=== PATIENT | female | born 1955 | race Caucasian/White ===

== ENCOUNTER → 2016-12-27 | Outpatient (CLI) | payer OTHER ==
[2014-08-19 07:00] VITALS: BP 169/92
[~2016-12-27] MED LIST: ENAL20TA PO; MIRT15TA PO; MIRT45TA PO; PARO20TA99 PO; PARO40TA61 PO; RANI150T2 PO
--- NOTE | 2016-12-28 09:32 | KCIC ---
DATE: 12/27/2016 EXAM: MAMMO YANA SCREENING BILATERAL HISTORY: Routine screening COMPARISON: 11/15/2015 This study was interpreted with the benefit of Computerized Aided Detection (CAD). The breast parenchyma is heterogeneously dense, which could reduce sensitivity of mammography. Breast parenchyma level C. FINDINGS: 2-D and 3-D tomosynthesis imaging was performed in CC and MLO projections. The breasts are asymmetric with increased density in the retroareolar region of the right breast compared to the left. This appearance is unchanged. Small nodular opacities in the lateral aspect of the right breast are also unchanged. No new or enlarging breast densities are seen. Minimal benign type calcification is present. No suspicious microcalcifications have developed. IMPRESSION: Stable mammograms without evidence of malignancy. BI-RADS CATEGORY: 2 BENIGN FINDING(S) RECOMMENDED FOLLOW-UP: 12M 12 MONTH FOLLOW-UP PQRS compliance statement: Patient information was entered into a reminder system with a target due date for the next mammogram. Mammography is a sensitive method for finding small breast cancers, but it does not detect them all and is not a substitute for careful clinical examination. A negative mammogram does not negate a clinically suspicious finding and should not result in delay in biopsying a clinically suspicious abnormality. "Our facility is accredited by the [employer] Mammography [employer]."
== END | disposition home or self-care (01) ==
LOC: KCIC MAMMO 14:31
PROVIDERS: ATTEND Family Medicine
DX: Z12.31 Encounter for screening mammogram for malignant neoplasm of breast (principal)
CPT/HCPCS: 77063; G0202; 77067

== ENCOUNTER → 2017-02-27 | Day surgery (SDC) | payer OTHER ==
[~2017-02-27] MED LIST changes: -ENAL20TA PO; +LIDOCAINE 1% PF 2 ML VIAL. ID; +LIDOCAINE 2% PF Vial for OR 5 ML VIAL.; -MIRT15TA PO; -MIRT45TA PO; +ONDANSETRON PF 4 MG/2 ML VIAL. IV; -PARO20TA99 PO; -PARO40TA61 PO; +PROCHLORPERAZINE 10 MG/2 ML VIAL. IV; +PROPOFOL 20 ML IV; +PROPOFOL 40 ML IV; -RANI150T2 PO; +fentaNYL PF VIAL 100 MCG/2 ML VIAL IV
[2017-02-27] MEDS: IV RINGERS,LACTATED 1000ML 1,000 ML IV (06:43)
== END | disposition home or self-care (01) ==
LOC: ENDOS 06:02
DX: Z12.11 Encounter for screening for malignant neoplasm of colon (principal); D12.5 Benign neoplasm of sigmoid colon; D12.0 Benign neoplasm of cecum; K62.1 Rectal polyp; K64.0 First degree hemorrhoids
CPT/HCPCS: 45385; 88305; J2704

== ENCOUNTER → 2018-02-25 | Outpatient (CLI) | payer OTHER ==
[2017-02-27 08:15] VITALS: BP 169/103
[~2018-02-25] MED LIST changes: +AMLO10TA6 PO; +ENAL20TA PO; -LIDOCAINE 1% PF 2 ML VIAL. ID; -LIDOCAINE 2% PF Vial for OR 5 ML VIAL.; +MIRT15TA PO; +MIRT45TA PO; -ONDANSETRON PF 4 MG/2 ML VIAL. IV; +PARO20TA99 PO; +PARO40TA61 PO; -PROCHLORPERAZINE 10 MG/2 ML VIAL. IV; -PROPOFOL 20 ML IV; -PROPOFOL 40 ML IV; +RANI150T2 PO; -fentaNYL PF VIAL 100 MCG/2 ML VIAL IV
--- NOTE | 2018-02-25 15:48 | KCIC ---
CT of the chest without contrast Indication: [Lung cancer screening. 30-45 year pack year history of smoking. Patient 62 years of age.] Comparison study: [CT of the chest without contrast August 17, 2014. TECHNIQUE: Multidetector CT imaging of the chest was performed without contrast using a low-dose, lung cancer screening protocol. FINDINGS: Heart size is normal. No pericardial effusion is seen. Scattered small mediastinal lymph nodes are noted, no pathologically enlarged mediastinal adenopathy is identified. Limited visualization of the upper abdomen is unremarkable. No evidence of acute osseous abnormality is identified. Chronic sternal fracture noted. Centrilobular emphysema is noted. The appearance is similar to comparison study. No pneumothorax, pleural effusion, or focal consolidative infiltrate is seen. No concerning nodules or masses are identified. No acute changes from prior study are identified. IMPRESSION: 1. Lung RADS 1 exam. Repeat low-dose CT in 12 months recommended[address] evidence of acute cardiopulmonary process. 3. Centrilobular emphysema, CT DOSING PQRS STATEMENT: One or more of the following individualized dose reduction techniques were utilized for this examination: 1. Automated exposure control 2. Adjustment of the mA and/or kV according to patient size 3. Use of iterative reconstruction technique Electronically signed by: Jacques Diaz MD (02/25/2018 3:43 PM) [id number]
--- NOTE | 2018-03-03 15:12 | KCIC ---
BILATERAL SCREENING MAMMOGRAM, 3-D History: Routine screening. Comparison: Bilateral mammogram December 27, 2016. Technique: MLO and CC digital tomosynthesis (3D) images obtained. Radiologist reviewed these images on dedicated workstation. Findings: Breast Tissue Density C : The breasts are heterogeneously dense, which may obscure small masses. Stable nodular asymmetry in the outer right breast at posterior depth. There are no dominant suspicious masses, suspicious microcalcifications, or architectural distortion. IMPRESSION: No mammographic evidence of malignancy. Recommend routine screening. BI-RADS category 2: Benign findings. The images were reviewed with computer-aided detection. Patient information is entered into reminder system with a target due date for the next screening mammogram. Mammography is the most sensitive method for finding small breast cancers, but it does not detect them all and is not a substitute for careful clinical examination. A negative mammogram does not negate a clinically suspicious finding and should not result in delay in biopsying a clinically suspicious abnormality. "Our facility is accredited by the [employer] Mammography [employer]." Electronically signed by: Blu Horton MD (02/26/2018 5:21 PM) [id number]
== END | disposition home or self-care (01) ==
LOC: KCIC MAMMO 11:38
PROVIDERS: ATTEND Physician Assistant Medical
DX: Z12.31 Encounter for screening mammogram for malignant neoplasm of breast (principal); Z12.2 Encounter for screening for malignant neoplasm of respiratory organs; S22.20XD Unspecified fracture of sternum, subsequent encounter for fracture with routine healing; J43.2 Centrilobular emphysema; Z87.891 Personal history of nicotine dependence; X58.XXXD Exposure to other specified factors, subsequent encounter
CPT/HCPCS: 77063; 77067; G0297

== ENCOUNTER → 2018-12-02 | Outpatient (CLI) | payer OTHER ==
[2017-02-27 08:15] VITALS: BP 169/103
[~2018-12-02] MED LIST changes: -AMLO10TA6 PO; +AMLO10TA8 PO
--- NOTE | 2018-12-02 14:59 | KCIC ---
EXAM: Cervical spine, 5 views. HISTORY: Pain. COMPARISON: None. FINDINGS: 5 views of cervical spine are obtained. There is minimal listhesis of and and C4 on C5 and C5 on C6. The vertebral bodies are normal in height. The disc spaces are preserved. There is multilevel facet arthropathy. There is anterior endplate remodeling at C6-C7. IMPRESSION: 1. Multilevel facet arthropathy and slight endplate remodeling at C5-C6. 2. Mild anterolisthesis of C4 on C5 and C5 on C6. Electronically signed by: Cinthya Garcia MD (12/02/2018 2:56 PM) [place] [id number]
== END | disposition home or self-care (01) ==
LOC: KCIC 13:50
PROVIDERS: ATTEND Physician Assistant Medical
DX: M43.12 Spondylolisthesis, cervical region (principal); M12.88 Other specific arthropathies, not elsewhere classified, other specified site
CPT/HCPCS: 72050

== ENCOUNTER → 2019-10-02 | Outpatient (CLI) | payer OTHER ==
[2017-02-27 08:15] VITALS: BP 169/103
--- NOTE | 2019-10-02 13:08 | KCIC ---
Bilateral digital screening mammograms with 3-D tomosynthesis: Reason for examination: Routine screening. Comparison is made to previous studies dated back to 11/15/2015. Bilateral mammograms in CC and oblique projections were obtained with 2-D imaging and 3-D tomosynthesis imaging on a Siemens Inspiration unit and reviewed on the workstation. Interpretation was made with the benefit of CAD. The skin and nipples show no abnormalities. No abnormal axillary lymph nodes are seen. The breast parenchyma is heterogeneously dense. (Breast density: Category C.) There continue to be 2 small circumscribed nodules at the 8:30 B position of the right breast which are stable. There are no new dominant masses, suspicious calcifications or architectural distortion. Impression: No evidence of malignancy. Recommend routine screening. Your patient's mammogram demonstrates that she has dense breast tissue (breast density category C or D), which could hide abnormalities, and if she has other risk factors for breast cancer that have been identified, she might benefit from supplemental screening tests that may be suggested by you as her ordering physician. Dense breast tissue, in and of itself, is a relatively common condition. Therefore, this information is not provided to cause undue concern, but rather to raise your awareness and to promote discussion with your patient regarding the presence of other risk factors, in addition to dense breast tissue. Your patient's mammography results will be sent to her. BI-RAD Category 2: Benign. "Our facility is accredited by the [employer] Mammography [employer]." This patient's information has been entered into a reminder system for the patient to be notified with the results of her examination and a target date for the next mammogram. Electronically signed by: Dana Irwin MD (10/02/2019 1:05 PM) [id number]
== END | disposition home or self-care (01) ==
LOC: KCIC MAMMO 10:58
PROVIDERS: ATTEND Physician Assistant Medical
DX: Z12.31 Encounter for screening mammogram for malignant neoplasm of breast (principal); N64.89 Other specified disorders of breast
CPT/HCPCS: 77063; 77067